=== PATIENT | male | born 1980 | race Two or more races ===

== ENCOUNTER 2020-09-08 15:17 | Emergency (ER) | payer OTHER, SELFPAY ==
--- NOTE | 2020-09-08 16:47 | ED.EXTPRO ---
HPI - Extremity Problem General Chief complaint: Extremity Injury, Upper Stated complaint: shoulder inj Time Seen by Provider: 09/08/20 16:47 Source: patient Mode of arrival: ambulatory Limitations: no limitations History of Present Illness HPI Narrative: Patient fell into door while using child hooverboard came with obvious deformity of left shoulder suggestive of anterior dislocation of shoulder no other injury Complaint: extremity pain Onset (ago): hour(s) Pain Consistency: constant Location: left Related Data Previous Rx's Medication Instructions Recorded ibuprofen 600 mg PO Q6H PRN #20 tab 09/08/20 Allergies Allergy/AdvReac Type Severity Reaction Status Date / Time No Known Allergies Allergy Verified 09/08/20 16:57 Review of Systems Review of Systems: Yes all other systems are reviewed and are negative [facility] Past Medical History Medical History Healthy adult Social History Social History Advance Directives: No Advance Directives Information Provided: No Physical Exam Vital Signs: Vital Signs: Last Vital Signs Temp 97.2 F 09/08/20 16:57 Pulse 66 09/08/20 17:41 Resp 16 09/08/20 17:41 BP 123/83 09/08/20 17:41 Pulse Ox 98 09/08/20 17:41 Body Mass Index 23.0 Appearance: Alert. Oriented X3. In moderate distress. Eyes: Pupils equal, round and reactive to light. ENT: Pharynx normal. Neck: Normal inspection. Neck supple. CVS: Normal heart rate and rhythm. Pulses normal. Respiratory: No respiratory distress. Breath sounds normal. Abdomen: Soft and nontender. Bowel sounds are present, no mass palpable, no CVA tenderness Skin: Skin warm and dry. Normal skin color. Normal skin turgor. Extremities: No lower extremity edema. Left shoulder: Obvious deformity suggestive of anterior dislocation of shoulder neurovascular intact limited abduction because of pain Neuro: Oriented X 3. No motor deficit. No sensory deficit. Procedures Orthopedic Joint Reduction Joint #1: Time Out Performed: Yes Side: left Joint Reduction Location: shoulder Analgesia: other (IV morphine 4 mg) Shoulder Technique Used (if applicable): external rotation Post-reduction vascular: intact Post Reduction X-Ray Obtained: Yes Post Reduction X-Ray Results: reduced Splint Applied: Yes Patient Tolerated Procedure: well Discharge Plan Discharge Clinical Impression: Anterior shoulder dislocation Qualifiers: Encounter type: initial encounter Laterality: left Qualified Code(s): S43.015A - Anterior dislocation of left humerus, initial encounter Patient Disposition: Home, Self-Care Instructions: Shoulder Dislocation (ED) Additional Instructions: Keep the left arm in sling. For support Avoid lifting her left arm above shoulder for next 2 weeks Ibuprofen for pain Prescriptions: New ibuprofen 600 mg tablet 600 mg PO Q6H PRN (Reason: pain) Qty: 20 RF: 0 Interventions: ED Discharge Assessment Last Done: 09/08/20 18:03 Discharge Date/Time: 09/08/20 18:04
--- NOTE | 2020-09-08 16:54 | XR_ITS ---
EXAMINATION: XR SHOULDER, LEFT CLINICAL INFORMATION: Left shoulder dislocation. COMPARISON: None TECHNIQUE: 2 views of the left shoulder. FINDINGS: Anterior subcoracoid dislocation of humeral head in relation to glenoid. No acute fractures seen. The soft tissues are normal. XR/XR shoulder LT min 2V IMPRESSION: Anterior subcoracoid dislocation left shoulder. No fracture seen.
[2020-09-08 16:57] VITALS: BP 133/87; PULSE 88; RESP 16; TEMP 36.2; O2SAT 98; BMI 23.0
[2020-09-08] MEDS: ondansetron HCL 4 MG/2 ML VIAL IVPUSH (17:10)
[2020-09-08] MEDS: Morphine Sulfate 4 MG/ML CARTRIDGE IVPUSH (17:10)
--- NOTE | 2020-09-08 17:21 | XR_ITS ---
EXAMINATION: XR SHOULDER, LEFT CLINICAL INFORMATION: Post reduction COMPARISON: Left shoulder performed earlier today TECHNIQUE: AP view of the left shoulder. FINDINGS: There is satisfactory alignment of humeral head post reduction. No fracture seen. The soft tissues are normal. XR/XR shoulder LT 1V IMPRESSION: Normal alignment of left glenohumeral shoulder joint post reduction. No acute fractures seen.
[2020-09-08 17:41] VITALS: BP 123/83; PULSE 66; RESP 16; O2SAT 98
--- NOTE | 2020-09-08 17:46 | PC.NURSE ---
pt tolerated reduction of left shoulder after motrin. good csm of left hand following proceedure. ice and sling/swath placed.
== END 2020-09-08 18:04 | disposition home or self-care (01) ==
PROVIDERS: Emergency Provider Internal Medicine; PCP Internal Medicine
DX: S43.015A Anterior dislocation of left humerus, initial encounter (principal); M25.512 Pain in left shoulder; V00.848A Other accident with standing micro-mobility pedestrian conveyance, initial encounter; Y93.9 Activity, unspecified; Y92.009 Unspecified place in unspecified non-institutional (private) residence as the place of occurrence of the external cause; Y99.9 Unspecified external cause status
CPT/HCPCS: 23655; 29105; 73020; 73030; 96374; 99283; 99284; J2270; J2405

== ENCOUNTER 2021-02-23 09:18 | Outpatient (REF) | payer OTHER, SELFPAY ==
[2021-02-23 09:58] LABS: MANUAL DIFF FLAG NO
[2021-02-23 10:06] LABS: Basophils Percent Auto 0.7 % (0-2); Eosinophils Absolute Auto 0.1 X10*3/uL (0.0-0.4); Eosinophils Percent Auto 1.2 % (0-4); Hematocrit 43.6 % (42-52); Hemoglobin 14.1 g/dl (14.0-18.0); Imm Gran Abs Auto 0.02 X10*3/uL (0.00-0.03); Imm Gran Pct Auto 0.3 % (0.0-0.4); Lymphocytes Absolute Auto 1.9 X10*3/uL (1.2-4.9); Lymphocytes Percent Auto 31.3 % (20-40); Mean Corpuscular HGB Conc 32.3 g/dl (31.0-36.0); Mean Corpuscular Hemoglobin 26.2 pg (27.0-33.0); Mean Platelet Volume 9.1 fL (9.4-12.4); Monocytes Absolute Auto 0.5 X10*3/uL (0.1-1.2); Monocytes Percent Auto 7.7 % (2-11); Neutrophils Absolute Auto 3.5 X10*3/uL (2.0-8.3); Neutrophils Percent Auto 58.8 % (45-73); Platelet Count 308 X10*3/uL (160-400); Red Blood Count 5.38 X10*6/uL (4.60-5.80); Red Cell Distribution Width 13.4 % (11.0-16.0)
[2021-02-23 10:31] LABS: Alanine Aminotransferase 25 U/L (0-40); Albumin Level 4.6 g/dL (3.5-5.0); Alkaline Phosphatase 69 U/L (39-117); Anion Gap 11 (12-20); Aspartate Amino Transferase 20 U/L (5-37); Bilirubin Total 0.5 mg/dL (0.0-1.0); Blood Urea Nitrogen 17 mg/dL (9-16); Calcium 9.5 mg/dL (8.4-10.2); Carbon Dioxide 27 mmol/L (22-29); Chloride 108 mmol/L (96-108); Cholesterol 145 mg/dL; Estimated Glomerular Filt Rate > 60; Glucose Fasting 95 mg/dL (60-99); HDL Cholesterol 35 mg/dL; LDL Cholesterol Calculated 94 mg/dl; Potassium 4.4 mmol/L (3.3-5.1); Sodium 142 mmol/L (135-145); Total Protein 7.1 g/dL (6.5-8.0); Triglycerides 81 mg/dL
[2021-02-23 10:55] LABS: Thyroid Stimulating Hormone 0.98 uIU/mL (0.32-4.0)
[2021-02-27 16:03] LABS: Testosterone, Free 57.9 pg/mL (35.0-155.0); Testosterone, Total 456 ng/dL (250-1100)
== END 2021-02-23 09:19 | disposition home or self-care (01) ==
LOC: HO.LAB 09:18
PROVIDERS: PCP Internal Medicine; Visit Provider Internal Medicine
DX: Z00.00 Encounter for general adult medical examination without abnormal findings (principal); E03.9 Hypothyroidism, unspecified; E11.9 Type 2 diabetes mellitus without complications; R68.82 Decreased libido
CPT/HCPCS: 36415; 80053; 80061; 84402; 84403; 84443; 85025

== ENCOUNTER 2022-03-12 09:33 | Outpatient (REF) | payer OTHER, SELFPAY ==
[2022-03-12 09:42] LABS: MANUAL DIFF FLAG NO
[2022-03-12 10:33] LABS: Basophils Percent Auto 0.6 % (0-2); Eosinophils Absolute Auto 0.1 X10*3/uL (0.0-0.4); Eosinophils Percent Auto 2.7 % (0-4); Hematocrit 45.6 % (42.0-52.0); Hemoglobin 14.8 g/dl (14.0-18.0); Imm Gran Abs Auto 0.01 X10*3/uL (0.00-0.03); Imm Gran Pct Auto 0.2 % (0.0-0.4); Lymphocytes Absolute Auto 1.5 X10*3/uL (1.2-4.9); Lymphocytes Percent Auto 31.6 % (20-40); Mean Corpuscular HGB Conc 32.5 g/dl (31.0-36.0); Mean Corpuscular Hemoglobin 25.8 pg (27.0-33.0); Mean Corpuscular Volume 79.4 fL (80.0-98.0); Mean Platelet Volume 9.6 fL (9.4-12.4); Monocytes Absolute Auto 0.4 X10*3/uL (0.1-1.2); Monocytes Percent Auto 8.8 % (2-11); Neutrophils Absolute Auto 2.7 x10*3/uL (2.0-8.3); Neutrophils Percent Auto 56.1 % (45-73); Platelet Count 276 X10*3/uL (160-400); Red Blood Count 5.74 X10*6/uL (4.60-5.80); White Blood Count 4.9 X10*3/uL (4.8-10.8)
[2022-03-12 10:53] LABS: Alanine Aminotransferase 18 U/L (0-40); Albumin Level 4.6 g/dL (3.5-5.0); Alkaline Phosphatase 64 U/L (39-117); Anion Gap 11 (12-20); Aspartate Amino Transferase 16 U/L (5-37); Bilirubin Total 0.4 mg/dL (0.0-1.0); Blood Urea Nitrogen 15 mg/dL (9-16); Calcium 9.1 mg/dL (8.4-10.2); Carbon Dioxide 25 mmol/L (22-29); Chloride 108 mmol/L (96-108); Cholesterol 149 mg/dL; Estimated Glomerular Filt Rate > 60; Glucose Fasting 95 mg/dL (60-99); HDL Cholesterol 35 mg/dL; LDL Cholesterol Calculated 97 mg/dl; Potassium 4.1 mmol/L (3.3-5.1); Sodium 140 mmol/L (135-145); Triglycerides 85 mg/dL
== END 2022-03-12 09:34 | disposition home or self-care (01) ==
LOC: HO.LAB 09:33
PROVIDERS: PCP Internal Medicine; Visit Provider Internal Medicine
DX: Z13.0 Encounter for screening for diseases of the blood and blood-forming organs and certain disorders involving the immune mechanism (principal); E78.5 Hyperlipidemia, unspecified; I10 Essential (primary) hypertension
CPT/HCPCS: 36415; 80053; 80061; 85025

== ENCOUNTER 2024-02-27 13:43 | Outpatient (AMB) | payer OTHER, SELFPAY ==
[2024-02-27 13:45] VITALS: BP 110/70; PULSE 65; O2SAT 98; BMI 22.7
--- NOTE | 2024-02-27 13:45 | MHC.PC.OV ---
Vital Signs 02/27/24 13:45 Height 5 ft 11 in Weight 163 lb BMI 22.7 BP 110/70 Blood Pressure Location Lt brachial Position Sitting Pulse 65 Pulse Source Pulse Oximeter Pulse Oximetry (%) 98 Oxygen Delivery Method Room Air Intake Visit Reasons: Annual exam Glass Unloading Equipment Tender Required: No Grainer Machine: Not Required per policy Accompanied by: Self / Same As Patient Allergies No Known Allergies Allergy (Verified 02/27/24 13:46) Tobacco use date assessed: 02/27/24 Dental Screening Dental Screen Date: 02/27/24 Did you have a dental visit in the last 12 months?: Yes Did you have a dental problem in the last 6 months where you did not have access to dental care?: No Was dental information given to patient?: Patient has dentist HPI Annual exam HPI Details healthy with cngenital foot abnormality [facility] Medical History Healthy adult Surgical History History of appendectomy History of eye surgery Family History Mother No problems noted. Father No problems noted. Social History Housing: House Alcohol intake: never Patient Tobacco Use Status: Never used Tobacco e-Cigarette/Vaping Use: Never Used Second Hand Smoke Exposure: No service: No Current occupational status: employed Cognitive needs: No Hearing needs: No Vision needs: Yes (glasses) Questionnaire PHQ-9 Over the last 2 weeks, how often have you been bothered by any of the following problems? 1. Little interest or pleasure in doing things: not at all 2. Feeling down, depressed, or hopeless: not at all 3. Trouble falling or staying asleep, or sleeping too much: not at all 4. Feeling tired or having little energy: not at all 5. Poor appetite or overeating: not at all 6. Feeling bad about yourself - or that you are a failure or have let yourself or your family down: not at all 7. Trouble concentrating on things, such as reading the newspaper or watching television: not at all 8. Moving or speaking so slowly that other people could have noticed. Or the opposite - being so fidgety or restless that you have been moving around a lot more than usual: not at all 9. Thoughts that you would be better off or of hurting yourself in some way: not at all Total score: 0 Depression Screening Interpretation: Negative Depression Screening Done: Yes 47895 - PHQ-9 Billing: Yes Source: Developed by Drs. Rashel Oneal, Emerald Salazar, Ki Nuñez and colleagues, with an educational ronald from [employer]. Thrive Questionnaire Date Thrive assessed: 02/27/24 I am a: Patient What is your living situation today?: I have a steady place to live Within the past 12 months, did the food you bought not last and you didn't have the money to get more?: Never true Within the past 12 months, did you worry whether your food would run out before you got money to buy more?: Never true Do you have trouble paying for medicines?: No Do you have trouble getting transportation to medical appointments?: No Do you have trouble paying your heating and electricity bill?: No Do you have trouble taking care of your child, family member or friend?: No Do you have trouble with day-to-day activities such as bathing, preparing meals, shopping, managing finances, etc.?: No Are you currently unemployed and looking for a job?: No Are you interested in more education?: No Please select the resources that you would like help with: None THRIVE Score: 0 AUDIT C Alcohol Use Questionnaire (AUDIT-C) 1. How often do you have a drink containing alcohol?: Never Total Score: 0 Score Reviewed/Action Taken: Yes ALFONZO-7 AMB Questionnaire ALFONZO-7 Date ALFONZO - 7 assessed: 02/27/24 Feeling nervous, anxious, or on edge: 0 = Not at all Not being able to stop or control worryin = Not at all Worrying too much about different things: 0 = Not at all Trouble relaxin = Not at all Being so restless that it is hard to sit still: 0 = Not at all Becoming easily annoyed or irritable: 0 = Not at all Feeling afraid as if something awful might happen: 0 = Not at all Total ALFONZO-7 score (0-4 normal; 5-9 mild; 10-14 moderate; 15-21 severe): 0 Source: Developed by Drs. Rashel Oneal, Emerald Salazar, Ki Nuñez and colleagues, with an educational ronald from [employer]. Review of Systems Const Denies chills, Denies fatigue, Denies headache(s) and Denies weight loss Eyes Denies change in vision, Denies diplopia and Denies eye pain ENT Denies vertigo, Denies dizziness, Denies headache(s) and Denies nasal discharge Card Denies chest pain, Denies rapid heart rate and Denies dyspnea on exertion Resp Denies chest congestion, Denies cough, Denies pain with cough and Denies dyspnea on exertion GI Denies abdominal pain, Denies hematochezia and Denies change in bowel habits Musc Denies myalgias, Denies arthralgias and Denies joint swelling Skin/Breast Denies lesions and Denies unusual bruising Neuro Denies vertigo, Denies dizziness, Denies headache(s) and Denies focal weakness Endo Denies fatigue Physical exam (Primary Care) Vital Signs: Last Vital Signs Pulse 65 02/27/24 13:45 BP 110/70 02/27/24 13:45 Pulse Ox 98 02/27/24 13:45 Oxygen Delivery Method Room Air 02/27/24 13:45 BMI result Body Mass Index 22.7 Tobacco/Smoking Status: Tobacco use Status Tobacco use date assessed 02/27/24 02/27/24 13:47 Patient Tobacco Use Status Never used Tobacco 02/27/24 13:47 e-Cigarette/Vaping Use Never Used 02/27/24 13:47 PHQ-9: PHQ-9 Score PHQ-9: Total score 0 02/27/24 13:47 Depression Screening Interpretation: Negative Thrive Assessment: Date of Thrive Assessment Date Thrive assessed 02/27/24 02/27/24 13:47 Const General: cooperative, healthy appearing and no acute distress Orientation/consciousness: oriented to person, oriented to place and oriented to time [facility] Head: Yes normal to inspection, Yes normocephalic and Yes atraumatic Mouth: Normal oral and palatal mucosa present and tongue normal Throat: Yes posterior oropharynx normal and Yes uvula midline Eyes General: appearance normal, both eyes and all related structures Neck Neck: Yes normal visual inspection, Yes full ROM and Yes no lymphadenopathy Thyroid: Thyroid normal Carotids: normal carotid upstroke Chest Chest palpation & inspection: normal inspection of the chest Resp Effort & Inspection: normal respiratory effort and able to speak in complete sentences Auscultation: clear to auscultation bilaterally Cardio Jugular venous distension: no JVD Palpation: normal PMI Rate: regular rate Rhythm: regular rhythm Heart sounds: S1 normal heart sound present and S2 normal heart sound present GI Inspection: Yes normal to inspection Palpation (GI): Soft to palpation and No hepatosplenomegaly present Auscultation: normal bowel sounds General: Yes no CVA tenderness Back/Spine/Pelvis Back: no CVA tenderness Skin General skin exam: no rashes or lesions noted Neuro General: oriented to person, oriented to place and oriented to time Extrem General: Yes normal to inspection and Yes full ROM Assessment and Plan Assessment & Plan (1) Physical exam: Code(s): Z00.00 - Encounter for general adult medical examination without abnormal findings Plan: do labs; referred for colonoscopy Orders: Orders Lipid Panel Today Z13.220 - Encounter for screening for lipoid disorders Thyroid Stimulating Hormone Today Z13.29 - Encounter for screening for other suspected endocrine disorder Complete Blood Count Auto Diff Today Z13.0 - Encounter for screening for diseases of the blood and blood-forming organs and certain disorders involving the immune mechanism Comprehensive [place]. Panel Fast Today Z13.9 - Encounter for screening, unspecified Referrals Gastroenterology Referral Z12.11 - Encounter for screening for malignant neoplasm of colon Dermatology Referral R21 - Rash and other nonspecific skin eruption Coding Level of Care Code Est Pt Prev Care 40-64y(26985) Diagnoses Physical exam Z00.00
== END 2024-02-27 14:05 | disposition home or self-care (01) ==
PROVIDERS: PCP Internal Medicine; Visit Provider Internal Medicine
DX: Z00.00 Encounter for general adult medical examination without abnormal findings (principal)
CPT/HCPCS: 99396

== ENCOUNTER 2024-10-18 10:00 | Day surgery (SDC) | payer OTHER, SELFPAY ==
--- OUTSIDE RECORDS SUMMARY | 2024-08-19 13:24 | XMS_ITS | Patient Health Record ---
Author Organization [facility] Address [address] [place] [address] Care Team Providers Care Radio Machinist Name Role Phone Quinn Pena MD Primary Care Provider Unavaila ble Rashel Oliveir Unavailable [phone] ALLERGIES No Known Allergies REASON FOR REFERRAL Referring Provider First Name Quinn Referring Provider Last Name Jean Referring Provider Speciality General Pr actice Referred Organization [facility] Referred Provider Rashel Olivier Referred Address [address],[place], [place],[address], Referred Provider Specialty Gastroentero logy Referral Priority Routine IMMUNIZATIONS Vaccine Route Administration Date Status Comme nts Influenza Unknown 06/26/2024 Refused SOCIAL HISTORY Tobacco Use: Social History Observation Description Date Details (start date - stop date) Never Smoker NA - NA Sex Assigned At : Social History Observation Description Sex Assigned At Unknown Tobacco Use/Smoking Question Answer Notes Patient is a nonsmoker Alcohol Screen Question Answer Notes Did you have a drink containing alcohol in the p ast year? No Points 0 Interpretation Negative PROBLEMS Problem Type ICD Code Onset Dates Problem Status W/U Status Risk SNOMED Code Notes Problem Colon cancer screening (Z12.11) Active confirmed Colon cancer screening (973006405) Problem Encounter for other preprocedural examination (Z01.818) Active confirmed Pre-procedure evaluation check (058522727) VITAL SIGNS Temperature 98.6 degrees Fahrenheit 06/26/2024 Blood pressure diastolic 00 mm Hg 06/26/2024 Height 5 ft 11 in in 06/26/2024 Blood pressure systolic 000 mm Hg 06/26/2024 Weight 166 lb 4 oz lbs 06/26/2024 BMI 23.18 kg/m2 06/26/2024 Encounters Encounter Location Date Provider Diagnosis [facility] [address] [place] [address] 06/26/2024 Rashel Olivier Colon cancer screeni ng Z12.11 and Encounter for other preprocedural examination Z01.818 ASSESSMENTS Encounter Date Diagnosis Assessment Notes Treatment Notes Treatment Clinical Notes 06/26/2024 Colon cancer screening (ICD-10 - Z12.11) 06/26/2024 Encounter for other preprocedural examination (ICD-10 - Z01.818) PLAN OF TREATMENT Future Test Test Name Order Date COLONOSCOPY 06/26/2024 Next Appt Details Provider Name:Rashel Olivier , 10/18/2024 12:00:00 PM, [address] [place] [address] , [place], [place], [id number], Insurance Providers Payer Name Payer Address Payer Phone Subscriber Number Group Number Insured Name Patient Relationship to Insured Coverage Start Date Coverage End Date [employer] [address] [place] [phone] [id number] JUSTUS ESQUIVEL Self - patient is the insured MEDICAL (GENERAL) HISTORY Medical History History ICD Code Kidney stones Denies MD,DM,CVA,Lung disease,renal dise ase Surgical History Surgery Date(Month/Year) Cleft foot on the left Right eye Appy Hospitalization History Reason Date(Month/Year)
--- OUTSIDE RECORDS SUMMARY | 2024-08-19 13:24 | XMS_ITS ---
Author Organization [facility] Address [address] [place] [address] Care Team Providers Care Aviation Project Manager Name Role Phone Quinn Pena MD Primary Care Provider Rashel Vaughan [phone] ALLERGIES No Known Allergies REASON FOR VISIT Patient presents today for a COLON SCREENING IMMUNIZATIONS Vaccine Route Administration Date Status Comme [...] screening (Z12.11) Active confirmed Colon cancer screening (844598855) Problem Encounter for other preprocedural examination (Z01.818) Active confirmed Pre-procedure evaluation check (495581943) VITAL SIGNS BMI 23.18 kg/m2 06/26/2024 Blood pressure systolic 000 mm Hg 06/26/20 24 Blood pressure diastolic 00 mm Hg 024 Height 5 ft 11 in in 06/26/2024 Temperature 98.6 degrees Fahrenheit 06/26/20 24 Weight 166 lb 4 oz lbs 06/26/2024 Encounters Encounter Location Date Provider Diagnosis [facility] [address] [place] [address] 06/26/2024 Rashel Olivier Colon cancer screeni ng Z12.11 and Encounter for other preprocedural examination Z01.818 ASSESSMENTS Encounter Date Diagnosis Assessment Notes Treatment Notes Treatment Clinical Notes 06/26/2024 Colon cancer screening (ICD-10 - Z12.11) 06/26/2024 Encounter for other preprocedural examination (ICD-10 - Z01.818) PLAN OF TREATMENT Future Test Test Name Order Date COLONOSCOPY 06/26/2024 Next Appt Details Follow Up: prn, Reason: Provider Name:Rashel Olivier , 10/18/2024 12:00:00 PM, [address] [place] [address] , [place], [phone], Progress Notes * Examination Category Sub-Category Detail Notes General Examination GENERAL APPEARANCE: pleasant , well nourished, well developed, in no acute distress HEAD: EYES: sclera non-icteric EARS: NOSE: THROAT: NECK/THYROID: no cervical lymphade nopathy, neck supple HEART: S1, S2 normal CHEST: LUNGS: clear to auscultatio n bilaterally ABDOMEN: normal bowel sounds, no guarding or rigidity, no guarding or rigidity, no masses palpable, soft, nontender, nondistended NEUROLOGIC: alert and oriented SKIN: nonjaundiced, no spi emerita angiomata EXTREMITIES: no edema PERIPHERAL PULSES: BACK: BREASTS: MUSCULOSKELETAL: MALE GENITOURINARY: LYMPH NODES: RECTAL EXAM: FEMALE GENITOURINARY: ORAL CAVITY: mucosa moist
[2024-10-16 15:17] VITALS: BMI 23.2
[2024-10-18 10:23] VITALS: BP 115/78; PULSE 73; RESP 14; TEMP 36.6; O2SAT 99; BMI 22.0
[2024-10-18] MEDS: Lactated Ringers 1,000 ML 80 ML IVCONT (10:32)
--- NOTE | 2024-10-18 10:40 | HO.ANESPROP2 ---
HPI - Anesthesia Eval Consult details Narrative: colon screen [facility] Active Problems Active Problems: All Active Problems Back pain (Acute) Decreased libido (Acute) Physical exam (Acute) Past Medical History Medical History Kidney stones Cleft foot of left lower extremity Healthy adult Family History Family History Mother No problems noted. Father No problems noted. Family history of problems with anesthesia: No Surgical History Surgical History History of appendectomy History of eye surgery History of Problems with Anesthesia: No Social History Social History Housing: House Alcohol intake: never Patient Tobacco Use Status: Never used Tobacco e-Cigarette/Vaping Use: Never Used Second Hand Smoke Exposure: No Use of substances other than those prescribed or required for medical reasons: No Have you been hit, kicked, punched, or otherwise hurt by someone within the past year? If so, by whom?: No Are you DNR?: No Advance Directives: No Advance Directives Information Provided: Yes Recently lost weight without trying: No service: No Current occupational status: employed Cognitive needs: No Hearing needs: No Vision needs: Yes (glasses) Meds Allergies Allergy/AdvReac Type Severity Reaction Status Date / Time No Known Allergies Allergy Verified 10/18/24 10:22 Active Medications: Current Medications Lactated Ringer's (Lr) 1,000 mls @ 80 mls/hr IVCONT .[id number] [facility] Last Admin: 10/18/24 10:32 Dose: 80 mls/hr Sodium Biphosphate/Sodium Phosphate (Sodium Phosphate,[place]-Dibasic 133 Ml Enema) 133 ml IN ONCE PRN PRN Reason: Poor Colonoscopy Prep Results Exam Height,Weight and Vital Signs: Height 5 ft 11 in Weight 71.668 kg Last Vital Signs Temp 97.9 F 10/18/24 10:23 Pulse 73 10/18/24 10:23 Resp 14 10/18/24 10:23 BP 115/78 10/18/24 10:23 Pulse Ox 99 10/18/24 10:23 O2 Del Method Room Air 10/18/24 10:23 Airway Mallampati Class: II TM Dist: >3cm Neck ROM: Full Heart: rrr Lungs: cta Assessment and Plan Assessment Anesthesia Assessment: Anesthesia Plan Discussed and Chart Reviewed Final Anesthetic Review Family History of Problems with Anesthesia: No History of Problems with Anesthesia: No NPO: Yes ASA Class: I Final Preanesthetic Review: No Changes in Pt Med Stat, Meds/Allgs Chart Reviewed, Consent Obtained/Reviewed and Anes Risks/Benef Reviewed Patient Risk: Low Procedure Risk: Low Anesthetic Plan Anesthetic Plan: MAC: Disposition: Standard PACU
--- NOTE | 2024-10-18 12:33 | PM.OP ---
Brief Operative Note Date of Service: 10/18/24 Pre-op diagnosis: Screening Post-op diagnosis: other (Internal hemorrhoids) Procedure: Colonoscopy to the cecum and TI Surgeon: Rashel Olivier MD Anesthesia: MAC Was an Golf Ball Cover Treater used for this Procedure?: No Estimated blood loss (mL): 0 Pathology: none sent Condition: stable Disposition: PACU
[2024-10-18 12:34] VITALS: BP 99/63; PULSE 70; RESP 16; TEMP 36.1; O2SAT 99
[2024-10-18 12:47] VITALS: BP 120/78; PULSE 77; RESP 16; TEMP 36.1; O2SAT 100
--- NOTE | 2024-10-18 22:54 | OP_ITS ---
DATE OF SERVICE: 10/18/2024 SURGEON: Rashel Olivier MD INDICATIONS: The patient presents for evaluation of colorectal cancer screening. Full consent has been obtained from him for this, including risks of bleeding and perforation. PREOPERATIVE DIAGNOSIS: Colorectal cancer screening. POSTOPERATIVE DIAGNOSIS: PROCEDURE PERFORMED: Colonoscopy to cecum and terminal ileum. ESTIMATED BLOOD LOSS: COMPLICATIONS: ANESTHESIA: Monitored anesthesia care. ASSISTANTS: SPECIMENS: POSTOPERATIVE DIAGNOSES: Colorectal cancer screening, small internal hemorrhoids. DESCRIPTION OF PROCEDURE: The patient was placed in the left lateral decubitus position. The digital rectal exam revealed no abnormalities. The Olympus video pediatric colonoscope was entered into the rectum and advanced easily to the cecum. Once in the cecum, I did identify normal-appearing cecal pouch with appendiceal orifice and a normal-appearing ileocecal valve. The terminal ileum was cannulated and appeared normal. Scope was withdrawn back in the colon. The entire cecum and ileocecal valve appeared normal. The scope was then slowly withdrawn assessing all mucosal surfaces carefully. Preparation was excellent. I did not visualize any sign of polyps, colitis, nor angiodysplasia. In the rectum, scope was retroflexed visualizing some minimal internal hemorrhoids, but no other pathology. The rectal mucosa appeared normal. The scope was straightened and withdrawn from the patient. He tolerated the procedure well and was returned to the recovery area in stable condition. IMPRESSION: Small internal hemorrhoids, otherwise normal colonoscopy. PLAN: Given his negative exam and negative family history, I would recommend a followup colonoscopy in 10 years for further screening. He will otherwise see me on a p.r.n. basis. Rashel Olivier MD RMW/MODL / [phone]
== END 2024-10-18 13:11 | disposition home or self-care (01) ==
PROVIDERS: PCP Internal Medicine; Visit Provider Internal Medicine
PROC: 0DJD8ZZ Inspection of Lower Intestinal Tract, Via Natural or Artificial Opening Endoscopic (ICD-10-PCS; CPT 45378; principal; 2024-10-18 12:00)
DX: Z12.11 Encounter for screening for malignant neoplasm of colon (principal); K64.8 Other hemorrhoids; M54.9 Dorsalgia, unspecified; R68.82 Decreased libido; Q72.7 Split foot; Z87.442 Personal history of urinary calculi; Z98.890 Other specified postprocedural states
CPT/HCPCS: 45378; J2704

== ENCOUNTER 2025-04-23 14:54 | Outpatient (AMB) | payer OTHER, SELFPAY ==
--- OUTSIDE RECORDS SUMMARY | 2024-10-18 08:00 | XMS_ITS ---
Author Organization [facility] Address [address] [place] [address] Care Team Providers Care Barrel Tester And Drainer Name Role Phone Quinn Pena MD Primary Care Provider Johannaa Rashel Levy [phone] REASON FOR VISIT colon screening Encounters Encounter Location Date Provider Diagnosis [facility] [place] Out[place] [address] [place], [place] [id number] 10/18/2024 Rashel Olivier Colon cancer scree alva Z12.11 and Other hemorrhoids K64.8 Assessments Encounter Date Diagnosis (ICD Code) Assessment Notes Treatment Notes Treatment Clinical Notes Section Notes 10/18/2024 Colon cancer screening (ICD-10 - Z12.11) 10/18/2024 Other hemorrhoids (ICD-10 - K64.8) Plan Of Treatment No Information Progress Notes * JUSTUS ESQUIVEL DavidDOB:1980 (44 yo M)Acc No.[id number]:10/18/2024 COLON WITH MAC Patient: JUSTUS HATFIELD Provider: Lori Olivier MD :1980 A ge:44 Y S ex:Male Date:10/18/2024 Address:[address] , [id number] Pcp:Quinn Pena MD Subjective: * Chief Complaints: * 1 . Colon screening. * Medical History: Objective: * Vitals: Assessment: * Assessment: 1. C olon cancer screening - Z12.11 (Primary) 2 . O ther hemorrhoids - K64.8 Plan: * Treatment: * Procedure Codes: 4 5378 DIAGNOSTIC COLONOSCOPY, Modifiers: 33 * * The named appointment provid er may or may not be the originator of this progress note, and it is not deemed complete until electronically signed by the appointment provider. Sign off status: Pending * Provider: Lori Olivier MD Date: 0 10/18/2024 Generated for Adonis modi/Miguel Angel/Vernonitting on: 0 04/23/2025 04:18 PM EDT
[2025-04-23 15:07] VITALS: BP 120/62; PULSE 70; RESP 18; TEMP 36.2; O2SAT 96; BMI 22.8
--- NOTE | 2025-04-23 15:07 | MHC.PC.OV ---
Vital Signs 04/23/25 15:07 Height 5 ft 11 in Weight 163 lb 6 oz BMI 22.8 BP 120/62 Blood Pressure Location Lt brachial Position Sitting Respiration 18 Pulse 70 Pulse Source Pulse Oximeter Temp 97.1 F Temp Source Temporal Artery Scan Pulse Oximetry (%) 96 Intake Visit Reasons: MAYNOR DR Pena Manufacturing Engineering Technologist Required: No Accompanied by: Self / Same As Patient Allergies No Known Allergies Allergy (Verified 05/04/25 17:27) Medication List - Last Reconciled 05/04/25 by RHONDA Hurley triamcinolone acetonide 0.5% 1 appl topical TID Tobacco use date assessed: 04/23/25 Dental Screening Dental Screen Date: 04/23/25 Did you have a dental visit in the last 12 months?: Yes Did you have a dental problem in the last 6 months where you did not have access to dental care?: No Was dental information given to patient?: Patient has dentist HPI MAYNOR DR Pena HPI Details The patient is a 44-year-old male presenting to transition care from Dr. Pena who retired 5 months ago. 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 The patient reports chronic back pain, which he attributes to compensatory mechanisms due to his congenital clubfoot. The back pain is described as a wear and tear type, exacerbated by overuse of the leg to compensate for the clubfoot. The patient was born with a clubfoot, which has caused persistent pain since infancy. He reports limited motion in the affected leg and foot, with a tendency for the foot to turn inward. Previous consultations suggested surgical intervention, but due to the deformity, outcomes were not guaranteed. The patient has a history of kidney stones, which required procedural intervention in the past. He reports that the kidney stones have not recurred since the procedure. The patient also has a history of shoulder dislocation, which was treated in the emergency room. The shoulder was relocated without the need for surgery, although the patient reports it is not fully back to normal. [facility] Medical History (Updated 05/04/25 @ 17:35 by RHONDA Hurley) Kidney stones Cleft foot of left lower extremity Healthy adult Surgical History History of appendectomy History of eye surgery Family History Mother No problems noted. Father No problems noted. Social History Housing: House Alcohol intake: never Patient Tobacco Use Status: Never used Tobacco e-Cigarette/Vaping Use: Never Used Second Hand Smoke Exposure: No service: No Current occupational status: employed Cognitive needs: No Hearing needs: No Vision needs: Yes (glasses) Questionnaire PHQ-9 Over the last 2 weeks, how often have you been bothered by any of the following problems? 1. Little interest or pleasure in doing things: nearly every day 2. Feeling down, depressed, or hopeless: not at all 3. Trouble falling or staying asleep, or sleeping too much: not at all 4. Feeling tired or having little energy: not at all 5. Poor appetite or overeating: not at all 6. Feeling bad about yourself - or that you are a failure or have let yourself or your family down: not at all 7. Trouble concentrating on things, such as reading the newspaper or watching television: not at all 8. Moving or speaking so slowly that other people could have noticed. Or the opposite - being so fidgety or restless that you have been moving around a lot more than usual: not at all 9. Thoughts that you would be better off or of hurting yourself in some way: not at all Total score: 3 Depression Screening Interpretation: Negative Depression Screening Done: Yes 03852 - PHQ-9 Billing: Yes Source: Developed by Drs. Rashel Oneal, Emerald Salazar, Ki Nuñez and colleagues, with an educational ronald from [employer]. Thrive Questionnaire Date Thrive assessed: 04/23/25 I am a: Patient What is your living situation today?: I have a steady place to live Within the past 12 months, did the food you bought not last and you didn't have the money to get more?: Often true Within the past 12 months, did you worry whether your food would run out before you got money to buy more?: Never true Do you have trouble paying for medicines?: No Do you have trouble getting transportation to medical appointments?: No Do you have trouble paying your heating and electricity bill?: No Do you have trouble taking care of your child, family member or friend?: No Do you have trouble with day-to-day activities such as bathing, preparing meals, shopping, managing finances, etc.?: No Are you currently unemployed and looking for a job?: No Are you interested in more education?: Yes Please select the resources that you would like help with: None Currently or been in a relationship where the following occur: No concerns reported THRIVE Score: 1 AUDIT C Alcohol Use Questionnaire (AUDIT-C) 1. How often do you have a drink containing alcohol?: Never Total Score: 0 ALFONZO-7 AMB Questionnaire ALFONZO-7 Date ALFONZO - 7 assessed: 04/23/25 Feeling nervous, anxious, or on edge: 0 = Not at all Not being able to stop or control worryin = Not at all Worrying too much about different things: 0 = Not at all Trouble relaxin = Not at all Being so restless that it is hard to sit still: 0 = Not at all Becoming easily annoyed or irritable: 0 = Not at all Feeling afraid as if something awful might happen: 0 = Not at all Total ALFONZO-7 score (0-4 normal; 5-9 mild; 10-14 moderate; 15-21 severe): 0 Source: Developed by Drs. Rashel Oneal, Emerald Salazar, Ki Nuñez and colleagues, with an educational ronald from [employer]. ALFONZO-7 Assessment Billing ALFONZO-7 Assessment Tool: ALFONZO-7 Assessment 97069 Review of Systems Const Denies headache(s) Eyes Denies loss of vision ENT Denies vertigo, Denies dizziness, Denies headache(s) and Denies sore throat Card Denies chest pain, Denies leg edema and Denies lightheadedness Resp Denies cough, Denies hemoptysis and Denies wheezing GI Denies abdominal pain, Denies melena, Denies constipation, Denies diarrhea and Denies vomiting Denies dysuria, Denies urinary frequency and Denies urinary urgency Musc Reports back pain, Reports deformity (Clubfoot, left), Reports arthralgias (Left shoulder-mild hx of dislocation), Denies joint swelling, Denies numbness and Denies tingling Neuro Denies Abnormal speech present, Denies behavioral changes, Denies vertigo, Denies dizziness, Denies headache(s), Denies loss of vision, Denies memory loss, Denies numbness and Denies tingling Psych Denies anxiety, Denies behavioral changes, Denies depression, Denies memory loss and Denies panic attacks Dillon/Lymph Denies easy bleeding and Denies easy bruising Aller/Immun Denies wheezing Physical exam (Primary Care) Vital Signs: Last Vital Signs Temp 97.1 F 04/23/25 15:07 Pulse 70 04/23/25 15:07 Resp 18 04/23/25 15:07 BP 120/62 04/23/25 15:07 Pulse Ox 96 04/23/25 15:07 BMI result Body Mass Index 22.8 Tobacco/Smoking Status: Tobacco use Status Tobacco use date assessed 04/23/25 04/23/25 15:13 Patient Tobacco Use Status Never used Tobacco 04/23/25 15:13 e-Cigarette/Vaping Use Never Used 04/23/25 15:13 PHQ-9: PHQ-9 Score PHQ-9: Total score 3 04/23/25 15:31 Depression Screening Interpretation: Negative Thrive Assessment: Date of Thrive Assessment Date Thrive assessed 04/23/25 04/23/25 15:13 Currently or been in a relationship where the following occur: No concerns reported Const General: healthy appearing, no acute distress, alert and awake Nutritional Appearance: well nourished Orientation/consciousness: oriented to person, oriented to place and oriented to time HENMT Ears: TM's normal bilaterally General nose exam: Normal nasal mucous membranes and turbinates present Eyes Conjunctivae: conjunctivae normal Sclerae: sclerae normal Pupils: Equal, round and reactive pupils present Neck Neck: Yes no lymphadenopathy and Yes no JVD Thyroid: Thyroid normal Carotids: no bruits Resp Effort & Inspection: normal respiratory effort and not tachypneic Auscultation: no crackles, no rales, no rhonchi and no wheezes Cardio Rate: regular rate Rhythm: regular rhythm Heart sounds: no murmurs and normal S1 and S2 GI Palpation (GI): Soft to palpation, nontender, no hepatomegaly and no splenomegaly Auscultation: normal bowel sounds Back/Spine/Pelvis Thoracic/Lumbar Spine: No lumbar spinal tenderness Skin General skin exam: no rashes or lesions noted and dry skin Neuro General: oriented to person, oriented to place and oriented to time Cranial nerves: Yes Equal, round and reactive pupils present Speech: No Abnormal speech present Gait exam (Neuro): Normal gait present Motor exam (neuro): no tremor noted Extrem Right upper extremity: full ROM Left upper extremity: full ROM Right lower extremity: full ROM; no edema Left lower extremity: full ROM and foot Details: abnormal to inspection Details: a deformity (Clubfoot); no edema Psych Mental Status: mental status grossly normal Speech and movement: Normal speech and movement present Affect: normal affect Attitude: cooperative Thought process: Normal thought process present Coding Level of Care Code Est Pt Level 3 (33851) Diagnoses Cleft foot of left lower extremity Q72.72 Chronic bilateral low back pain without sciatica M54.50; G89.29 Back pain location: low back pain Chronicity: chronic Back pain laterality: bilateral Sciatica presence: without sciatica Additional Codes PHQ-9 - 79133 - PHQ-9 Billing: Yes ([id number]) ALFONZO-7 Assessment Billing - ALFONZO-7 Assessment Tool: ALFONZO-7 Assessment 82160 ([id number]) Time Spent (min) 37 Assessment & Plan Assessment & Plan (1) Cleft foot of left lower extremity: Code(s): Q72.72 - Split foot, left lower limb Category: Medical Plan: Continue frequent stretching and modified activity. Maintain comfortable footwear. May consider PT intermittently to strengthen and increase flexibility and foot. (2) Back pain: Comment: 20 min reviewing chart eval pt and documenting; rest and heat Code(s): M54.9 - Dorsalgia, unspecified Category: Medical Qualifiers: Back pain location: low back pain Chronicity: chronic Back pain laterality: bilateral Sciatica presence: without sciatica Qualified Code(s): M54.50 - Low back pain, unspecified; G89.29 - Other chronic pain Plan: Avoid bed rest (including sitting in bed) and to simply limit painful activities; improvement usually occurs within a few weeks May use cool packs; may alternate cold and hot packs Exercises a cooper (e.g., walking, swimming, cycling) as soon as possible, starting with 5-10 min and walk-in up to 20-30 minute q.day Abdominal core and back strengthening exercises may help to prevent future problems Plan The patient to complete labs for further evaluation Orders: Orders Complete Blood Count Auto Diff 04/26/25 M54.9 - Dorsalgia, unspecified, R68.82 - Decreased libido, Z00.00 - Encounter for general adult medical examination without abnormal findings, Q72.72 - Split foot, left lower limb Comprehensive [place]. Panel Fast 04/26/25 M54.9 - Dorsalgia, unspecified, R68.82 - Decreased libido, Z00.00 - Encounter for general adult medical examination without abnormal findings, Q72.72 - Split foot, left lower limb UA CC w/rflx Micro + Cult 04/26/25 M54.9 - Dorsalgia, unspecified, R68.82 - Decreased libido, Z00.00 - Encounter for general adult medical examination without abnormal findings, Q72.72 - Split foot, left lower limb TSH reflex Free T4 04/26/25 M54.9 - Dorsalgia, unspecified, R68.82 - Decreased libido, Z00.00 - Encounter for general adult medical examination without abnormal findings, Q72.72 - Split foot, left lower limb Vitamin D 25-OH Total 04/26/25 M54.9 - Dorsalgia, unspecified, R68.82 - Decreased libido, Z00.00 - Encounter for general adult medical examination without abnormal findings, Q72.72 - Split foot, left lower limb Lipid Panel 04/26/25 M54.9 - Dorsalgia, unspecified, R68.82 - Decreased libido, Z00.00 - Encounter for general adult medical examination without abnormal findings, Q72.72 - Split foot, left lower limb CT NG by PCR Urine 04/26/25 M54.9 - Dorsalgia, unspecified, R68.82 - Decreased libido, Q72.72 - Split foot, left lower limb, Z00.00 - Encounter for general adult medical examination without abnormal findings, Z11.3 - Encounter for screening for infections with a predominantly sexual mode of transmission HIV Ab/Ag 04/26/25 M54.9 - Dorsalgia, unspecified, R68.82 - Decreased libido, Q72.72 - Split foot, left lower limb, Z00.00 - Encounter for general adult medical examination without abnormal findings Syphilis Screen 04/26/25 M54.9 - Dorsalgia, unspecified, R68.82 - Decreased libido, Q72.72 - Split foot, left lower limb, Z00.00 - Encounter for general adult medical examination without abnormal findings
--- OUTSIDE RECORDS SUMMARY | 2025-04-23 16:18 | XMS_ITS | Patient Health Record ---
Author Organization [facility] Address [address] [place] [address] Care Team Providers Care House Worker General Name Role Phone Quinn Pena MD Primary Care Provider Unavaila ble Rashel Olivier Unavailable [phone] Allergies No Known Allergies Reason For Referral Referring Provider First Name Quinn Referring Provider Last Name Jean Referring Provider Speciality General Pr actice Referred Organization [facility] Referred Provider Rashel Olivier Referred Address [address],[place], [place],[address], Referred Provider Specialty Gastroentero logy General Notes Emili Craig 025 03:18:46 PM EST > requested a [place] [facility] referral for colon with Dr. Olivier on 10-18-2024 Referral Priority Routine Immunizations Vaccine Route Administration Date Status Comme nts Influenza Unknown 06/26/2024 Refused Social History Tobacco Use: Social History Observation Description Date Details (start date - stop date) Never Smoker NA - NA Tobacco Use/Smoking Question Answer Notes Patient is a nonsmoker Alcohol Screen Question Answer Notes Did you have a drink containing alcohol in the p ast year? No Points 0 Interpretation Negative Section Notes: Nonsmoker; no alcohol Problems Problem Type SNOMED Code ICD Code Onset Dates Problem Status W/U Status Risk Notes Problem Colon cancer screening (879692188) Colon cancer screening (Z12.11) Active confirmed Problem Pre-procedure evaluation check (484863932) Encounter for other preprocedural examination (Z01.818) Active confirmed Vital Signs Temperature 98.6 degrees Fahrenheit 06/26/2024 Blood pressure diastolic 00 mm Hg 06/26/2024 Height 5 ft 11 in in 06/26/2024 Blood pressure systolic 000 mm Hg 06/26/2024 Weight 166 lb 4 oz lbs 06/26/2024 BMI 23.18 kg/m2 06/26/2024 Encounters Encounter Location Date Provider Diagnosis [facility] Outpatient [address], [place] [id number] 10/18/2024 Rashel Olivier Colon cancer screeni ng Z12.11 and Other hemorrhoids K64.8 [facility] [address] [place] [address] 06/26/2024 Rashel Olivier Colon cancer screeni ng Z12.11 and Encounter for other preprocedural examination Z01.818 Assessments Encounter Date Diagnosis (ICD Code) Assessment Notes Treatment Notes Treatment Clinical Notes Section Notes 10/18/2024 Colon cancer screening (ICD-10 - Z12.11) 10/18/2024 Other hemorrhoids (ICD-10 - K64.8) 06/26/2024 Colon cancer screening (ICD-10 - Z12.11) Overall, Justus appears quite well and in excellent health. Given his age, I did recommend a colonoscopy for screening purposes. We did review the rationale for this in regard to colon cancer prevention. Full consent was obtained for this, including risks of bleeding and perforation. The procedure will be done with monitored anesthesia care. Justus was comfortable with this plan. Thank you again for allowing me to participate in Justus's care. I shall continue to keep you advised of his progress. 06/26/2024 Encounter for other preprocedural examination (ICD-10 - Z01.818) Overall, Justus appears quite well and in excellent health. Given his age, I did recommend a colonoscopy for screening purposes. We did review the rationale for this in regard to colon cancer prevention. Full consent was obtained for this, including risks of bleeding and perforation. The procedure will be done with monitored anesthesia care. Justus was comfortable with this plan. Thank you again for allowing me to participate in Justus's care. I shall continue to keep you advised of his progress. Plan Of Treatment Future Test Test Name Order Date COLONOSCOPY 06/26/2024 Insurance Providers Payer Name Payer Address Payer Phone Subscriber Number Group Number Insured Name Patient Relationship to Insured Coverage Start Date Coverage End Date [employer] [address] [place] [phone] [id number] JUSTUS ESQUIVEL Self - patient is the insured Medical (General) History Medical History History ICD Code Kidney stones Denies [place],DM,CVA,Lung disease,renal dise ase Surgical History Surgery Date(Month/Year) Cleft foot on the left Right eye Appy Hospitalization History Reason Date(Month/Year)
== END 2025-04-23 15:44 | disposition home or self-care (01) ==
LOC: HO.HMCH 14:55
DX: Q72.7 Split foot (principal); M54.50 Low back pain, unspecified; G89.29 Other chronic pain

== ENCOUNTER → 2025-04-23 14:54 | Outpatient (BNVA) | payer OTHER, SELFPAY | DX: Q72.7 Split foot (principal); M54.50 Low back pain, unspecified; G89.29 Other chronic pain; R68.82 Decreased libido; Z87.442 Personal history of urinary calculi | CPT/HCPCS: 96127 ==

== ENCOUNTER 2025-04-26 09:39 | Outpatient (REF) | payer OTHER, SELFPAY ==
--- OUTSIDE RECORDS SUMMARY | 2024-10-18 08:00 | XMS_ITS ---
Author Organization [facility] Address [address] [place] [address] Care Team Providers Care Automatic Toe Laster Name Role Phone Quinn Pena MD Primary Care Provider Johannaa Rashel Levy [phone] REASON FOR VISIT colon screening Encounters Encounter Location Date Provider Diagnosis [facility] [place] [address] [place], [place] [phone] 10/18/2024 Rashel Olivier Colon cancer scree alva Z12.11 and Other hemorrhoids K64.8 Assessments Encounter Date Diagnosis (ICD Code) Assessment Notes Treatment Notes Treatment Clinical Notes Section Notes 10/18/2024 Colon cancer screening (ICD-10 - Z12.11) 10/18/2024 Other hemorrhoids (ICD-10 - K64.8) Plan Of Treatment No Information Progress Notes * JUSTUS ESQUIVEL DavidDOB:1980 (44 yo M)Acc No.[id number]:10/18/2024 COLON WITH MAC Patient: JUSTUS HATFIELD Provider: Lori Olivier MD :1980 A ge:44 Y S ex:Male Date:10/18/2024 Address:[address] , [id number] Pcp:Quinn Pena MD Subjective: * Chief Complaints: [...] Generated for Adonis modi/Miguel Angel/Vernonitting on: 0 04/26/2025 09:41 AM EDT
--- OUTSIDE RECORDS SUMMARY | 2025-04-26 09:41 | XMS_ITS | Patient Health Record ---
Author Organization [facility] Address [address] [place] [address] Care Team Providers Care Service Center Assistant Name Role Phone Quinn Pena MD Primary Care Provider Unavaila ble Rashel Olivier Unavailable [phone] Allergies No Known Allergies Reason For Referral Referring Provider First Name Quinn Referring Provider Last Name Jean Referring Provider Speciality General Pr actice Referred Organization [facility] Referred Provider Rashel Olivier Referred Address [address],[place], [place],[address], Referred Provider Specialty Gastroentero logy General Notes Emili Craig 025 03:18:46 PM EST > requested a [place] [facility] referral for colon with Dr. Olivier [...] Status Risk Notes Problem Colon cancer screening (874808493) Colon cancer screening (Z12.11) Active confirmed Problem Pre-procedure evaluation check (251670639) Encounter for other preprocedural examination (Z01.818) Active confirmed Vital Signs Temperature 98.6 degrees Fahrenheit 06/26/2024 Blood pressure diastolic 00 mm Hg 06/26/2024 Height 5 ft 11 in in 06/26/2024 Blood pressure systolic 000 mm Hg 06/26/2024 Weight 166 lb 4 oz lbs 06/26/2024 BMI 23.18 kg/m2 06/26/2024 Encounters Encounter Location Date Provider Diagnosis [facility] Outpatient [address], [place] [phone] 10/18/2024 Rashel Olivier Colon cancer screeni ng Z12.11 and Other hemorrhoids K64.8 [facility] [address] [place] [address] 06/26/2024 Rashel Olivier Colon cancer screeni ng [...] Insured Coverage Start Date Coverage End Date [employer] [address] [place] [phone] [id number] JUSTUS ESQUIVEL Self - patient is the insured Medical (General) History Medical History History ICD Code Kidney stones Denies [place],DM,CVA,Lung disease,renal dise ase Surgical History Surgery Date(Month/Year) Cleft foot on the left Right eye Appy Hospitalization History Reason Date(Month/Year)
[2025-04-26 09:55] LABS: MANUAL DIFF FLAG NO
[2025-04-26 10:05] LABS: Hematocrit 44.6 % (42.0-52.0); Hemoglobin 14.8 g/dl (14.0-18.0); Imm Gran Abs Auto 0.01 X10*3/uL (0.00-0.03); Imm Gran Pct Auto 0.2 % (0.0-0.4); Lymphocytes Absolute Auto 1.5 X10*3/uL (1.2-4.9); Mean Corpuscular HGB Conc 33.2 g/dl (31.0-36.0); Mean Corpuscular Hemoglobin 26.4 pg (27.0-33.0); Mean Corpuscular Volume 79.5 fL (80.0-98.0); NRBC Abs Auto 0.000 X10*3/uL (0.0-0.012); NRBC Pct Auto 0.0 /100WBC (0.0-0.2); Platelet Count 288 X10*3/uL (160-400); Red Blood Count 5.61 X10*6/uL (4.60-5.80); White Blood Count 5.7 X10*3/uL (4.8-10.8)
[2025-04-26 10:12] LABS: Appearance Urine Clear; Glucose Urine UA Negative (Negative); PH 7.0 (5.0-9.0); Specific Gravity - Urine 1.020 (1.005-1.025); UMIC TRIGGER UACC YES
[2025-04-26 10:19] LABS: UACC Culture Trigger YES
[2025-04-26 10:38] LABS: Alanine Aminotransferase 26 U/L (0-40); Albumin Level 4.8 g/dL (3.5-5.0); Alkaline Phosphatase 64 U/L (39-117); Anion Gap 10 (12-20); Aspartate Amino Transferase 24 U/L (5-37); Blood Urea Nitrogen 18 mg/dL (9-16); Calcium 9.4 mg/dL (8.4-10.2); Carbon Dioxide 30 mmol/L (22-29); Chloride 108 mmol/L (96-108); Cholesterol 177 mg/dL (<200); Estimated Glomerular Filt Rate > 60; HDL Cholesterol 40 mg/dL (>40); Potassium 4.3 mmol/L (3.3-5.1); Sodium 144 mmol/L (135-145); Total Protein 7.3 g/dL (6.5-8.0); Triglycerides 108 mg/dL (<150)
[2025-04-26 10:50] LABS: HIV Num 1 0.08 S/CO (0.00-0.99)
[2025-04-26 10:52] LABS: Syphilis Screen Nonreactive (Nonreactive)
[2025-04-26 15:11] LABS: CT PCR Urine NOT DETECTED (Not Detect.); NG PCR Urine NOT DETECTED (Not Detect.)
== END 2025-04-26 09:40 | disposition home or self-care (01) ==
LOC: HO.LAB 09:39
DX: Z00.00 Encounter for general adult medical examination without abnormal findings (principal); Z11.3 Encounter for screening for infections with a predominantly sexual mode of transmission; Z13.6 Encounter for screening for cardiovascular disorders; Z11.8 Encounter for screening for other infectious and parasitic diseases; M54.9 Dorsalgia, unspecified; R68.82 Decreased libido; Q72.7 Split foot; Z11.4 Encounter for screening for human immunodeficiency virus [HIV]
CPT/HCPCS: 80053; 80061; 81001; 82306; 84443; 85025; 86780; 87086; 87147; 87389; 87491; 87591